=== PATIENT | male | born 1955 | race Caucasian/White ===

== ENCOUNTER → 2017-03-30 | Day surgery (SDC) | payer BC ==
[~2017-03-30] MED LIST: ASPIRINBUFF PO; CHLORTHALIDONE25 MG PO; FLOMAX0.4 M1 PO; LISINOPRIL30 MG PO; MEVACOR PO; MULTI-VITAMIN1 EAC1 PO; TYL325 PO
--- NOTE | ~2017-03-30 | OR ---
Unit #: [id number] #: [id number] Patient: VERONICA THOMPSON [id number] [facility]. [address] [place], [place] [address] [id number] O MR#: [id number] NAME: VERONICA THOMPSON ROOM: Date of Procedure: 03/30/2017 Admission Date: 03/30/2017 Surgeon: Lenny Jovel Jr., M.D. : 1955 Attending Physician: Lenny Jovel Jr., M.D. Referring Physician: Lenny Jovel Jr., M.D. Primary Care Physician: Franklin Addison M.D. OPERATIVE REPORT PREOPERATIVE DIAGNOSIS Mass of the left posterior forearm. POSTOPERATIVE DIAGNOSIS Mass of the left posterior forearm, noting approximately a 3.5 to 4 cm mass that appeared to be cystic and not lipomatous. ANESTHESIA 1% Xylocaine with epinephrine locally. PROCEDURE PERFORMED Excision of cystic mass, left posterior forearm. DESCRIPTION OF PROCEDURE The patient was positioned in supine position with his arm wrapped over the chest and prepped and draped in routine fashion for excision of the mass marked preoperatively in the holding room. The area was locally anesthetized with 1% Xylocaine with epinephrine. A transverse incision with a small elliptical portion of skin was then made. This was done with #10 blade scalpel and carried down through the subcutaneous tissue. There was a cystic mass that possibly was a venous aneurysm, it was dissected free and had some venous connection. The vein leading in and leading out of the area was clamped, divided, and ligated with 3-0 Vicryl sutures. After the mass was removed, it was sent to pathology. Hemostasis was then achieved with Bovie cautery after several additional fragments were ligated and the deeper subcutaneous tissue approximated with interrupted 3-0 Vicryl sutures. Skin edges were approximated with stainless-steel skin clips and skin stapling device. Sterile dressing was applied externally. Estimated blood loss less than 50 mL. The patient received no fluids during the procedure. Sponges and instrument counts were correct x3. No drains were used. No complications. The patient was taken to the discharge area with stable vital signs for discharge in satisfactory condition. Dictated by... Lenny Jovel Jr., M.D. JMB/sheng TD: 03/31/2017 07:04 JOB #: [id number] Unit #: [id number] #: [id number] Patient: VERONICA THOMPSON CC: Franklin Addison M.D. OPERATIVE REPORT Page 1 of 1 X Lenny Jovel MD X PROCEDURE OPERATIVE NOTE
== END | disposition home or self-care (01) ==
LOC: CSUR 10:28
DX: L57.8 Other skin changes due to chronic exposure to nonionizing radiation (principal); I82.890 Acute embolism and thrombosis of other specified veins; K21.9 Gastro-esophageal reflux disease without esophagitis; I10 Essential (primary) hypertension; Q05.9 Spina bifida, unspecified; N42.9 Disorder of prostate, unspecified; Z79.899 Other long term (current) drug therapy; Z80.3 Family history of malignant neoplasm of breast; Z90.49 Acquired absence of other specified parts of digestive tract; Z98.890 Other specified postprocedural states
CPT/HCPCS: 88304